=== PATIENT | female | born 1990 | race Caucasian/White ===

== ENCOUNTER 2017-01-22 15:47 | Emergency (ER) | payer OTHER ==
[2017-01-22 16:14] VITALS: BP 151/99
[2017-01-22 17:56] LABS: Bilirubin,Urine NEG (Negative); Blood,Urine NEG (Negative); Ketones,Urine NEG (Negative); Leukocyte Esterase,Urine NEG (Negative); Mucus,Urine 2+ /HPF; Nitrite,Urine NEG (Negative); Protein,Urine <15 mg/dL mg/dL (Negative); Urobilinogen,Urine < 2.0 mg/dL (<2.0)
[2017-01-22 18:04] LABS: WBC,Urine < 1.0 /HPF (0.0-6.0)
--- NOTE | 2017-01-22 19:25 | Emergency Department Report ---
ED Female HPI - General Chief complaint: Urogenital-Female Stated complaint: VAGINAL PAIN Time Seen by Provider: 01/22/17 19:14 Source: patient Mode of arrival: Ambulatory Limitations: No Limitations - History of Present Illness Initial comments: This is a 26-year-old female reports urinary frequency and burning when she urinates. 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 Patient denies any vaginal bleeding or discharge. When asked, she says she's not concerned about STDs medication she is not sexually active at present. Denies any fever or chills. Denies any nausea or vomiting. Denies abdominal or back pain. Patient also reporting triage this is having pelvic pain 7 out of 10. When asked, patient denies any she's having pelvic pain she says she told them that it was burning when she urinated. She denies having any pelvic pain. Last menstrual cycle was 2016. She denies any redness or swelling to her vaginal area MD Complaint: dysuria Onset/Timin -: days(s) Severity scale (0 -10): 0 Are you Now?: No Last Menstrual Period: 01/02/17 EDC: 10/09/17 Associated Symptoms: dysuria, other (urinary frequency). denies: vaginal discharge, vaginal bleeding, abdominal pain, nausea/vomiting, fever/chills, headaches, loss of appetite, hematuria, rash, seizure, shortness of breath, syncope, weakness - Related Data Sexually active: No Allergies Allergy/AdvReac Type Severity Reaction Status Date / Time No Known Allergies Allergy Unverified 01/22/17 16:11 ED Review of Systems ROS: Stated complaint: VAGINAL PAIN Other details as noted in HPI Comment: All other systems reviewed and negative Constitutional: denies: chills, fever ENT: denies: throat pain Respiratory: no symptoms reported Cardiovascular: denies: chest pain, palpitations, dyspnea on exertion, edema, syncope Gastrointestinal: denies: abdominal pain, nausea, vomiting, diarrhea Genitourinary: dysuria, frequency. denies: urgency, hematuria, discharge, abnormal menses Skin: denies: rash Neurological: denies: headache ED Past Medical Hx - Past Medical History Previous Medical History?: No - Surgical History Past Surgical History?: No - Family History Family history: no significant - Social History Smoking Status: Never Smoker Substance Use Type: None ED Physical Exam - General Limitations: No Limitations General appearance: alert, in no apparent distress - Head Head exam: Present: atraumatic, normocephalic, normal inspection - Eye Eye exam: Present: normal appearance, PERRL, EOMI Pupils: Present: normal accommodation - ENT ENT exam: Present: normal exam, normal orophraynx - Neck Neck exam: Present: normal inspection, full ROM. Absent: tenderness, lymphadenopathy - Respiratory Respiratory exam: Present: normal lung sounds bilaterally. Absent: respiratory distress, chest wall tenderness - Cardiovascular Cardiovascular Exam: Present: regular rate, normal rhythm, normal heart sounds - GI/Abdominal GI/Abdominal exam: Present: soft, normal bowel sounds, other (no pelvic tenderness with palpation. Nondistended bladder.). Absent: distended, tenderness, guarding, rebound, rigid - Extremities Exam Extremities exam: Present: normal inspection, full ROM, normal capillary refill. Absent: tenderness, pedal edema, joint swelling, calf tenderness - Back Exam Back exam: Present: normal inspection, full ROM. Absent: tenderness, CVA tenderness (R), CVA tenderness (L), muscle spasm, paraspinal tenderness, vertebral tenderness, rash noted - Neurological Exam Neurological exam: Present: alert, oriented X3, normal gait - Psychiatric Psychiatric exam: Present: normal affect, normal mood - Skin Skin exam: Present: warm, dry, intact, normal color. Absent: rash ED Course Vital Signs 01/22/17 16:11 Temperature 98.6 F Pulse Rate 93 H Respiratory 18 Rate Blood Pressure 151/99 O2 Sat by Pulse 100 Oximetry - Reevaluation(s) Reevaluation #1: 01/22/17 20:14 Patient stable throughout ED stay ED Medical Decision Making - Lab Data Lab Results 01/22/17 01/22/17 01/22/17 Range/Units 17:37 17:37 19:52 POC Glucose 86 (70-105) Urine Color Yellow (Yellow) Urine Turbidity Clear (Clear) Urine pH 5.0 (5.0-7.0) Ur Specific [place] 1.028 (1.003-1.030) Urine Protein <15 mg/dl (Negative) mg/dL Urine Glucose (UA) Neg (Negative) mg/dL Urine Ketones Neg (Negative) mg/dL Urine Blood Neg (Negative) Urine Nitrite Neg (Negative) Urine Bilirubin Neg (Negative) Urine Urobilinogen < 2.0 (<2.0) mg/dL Ur Leukocyte Esterase Neg (Negative) Urine WBC (Auto) < 1.0 (0.0-6.0) /HPF Urine RBC (Auto) 3.0 (0.0-6.0) /HPF U Epithel Cells (Auto) 1.0 (0-13.0) /HPF Urine Mucus 2+ /HPF Urine HCG, Qual Negative (Negative) Urine culture pending - Medical Decision Making ED course: Patient here with complaints of urinary burning and frequency. Urinalysis did not show any bacterial infection. Urine negative. I discussed the patient if she is concerned about STD and she said she is not sexually active and not concern. In triage note it says that patient was having pelvic pain but patient denies pelvic pain she says she told them that she was having urinary burning. He continued to deny any vaginal discharge or concerns for STDs. She did not want to have STD check because she says she is not having sex. Discussed the patient that I'll send her urine outputs for culture and if it comes back positive protocol she will be notified. POC blood sugar was at 86. Patient discharged home in stable condition to follow up with her primary care physician in 2-3 days. Critical care attestation.: If time is entered above; I have spent that time in minutes in the direct care of this critically ill patient, excluding procedure time. ED Disposition Clinical Impression: Urinary frequency, Dysuria Disposition: DISCHARGED TO HOME OR SELFCARE Is pt being admited?: No Does the pt Need Aspirin: No Condition: Stable Instructions: Dysuria (ED) Additional Instructions: Please follow up with primary care physician in 2-3 days. Referrals: PRIMARY CARE, [Primary Care Provider] - 2-3 Days Forms: Work/School Release Form(ED)
== END 2017-01-22 21:49 | disposition home or self-care (01) ==
LOC: ED 15:47
DX: R35.0 Frequency of micturition (principal); R30.0 Dysuria
CPT/HCPCS: 81001; 81025; 82962; 87086; 99283